=== PATIENT | female | born 1960 | race African-American/Black ===

== ENCOUNTER 2018-12-29 16:56 | Emergency (ER) | payer MEDICAID, MEDICARE ==
[~2018-12-29] VITALS: Ht 154.9 cm; Wt 77.1 kg
[2018-12-29] MEDS ORDERED: Ketorolac 30mg Inj IV ONE (17:15)
[2018-12-29] MEDS ORDERED: LORazepam Inj 2mg/ml 1ml IV ONE (17:15)
--- NOTE | 2018-12-29 17:28 | Emergency Room Report ---
History of Present Illness General Chief Complaint: Chest Pain Source: Patient Present Illness HPI Patient presents with neck pain. She woke up with this. When she went to [place] the pain was worse. She also started experiencing chest pain that was intermittent. Chest pain was nonexertional. He denies shortness of breath. There is no nausea or vomiting. He denies headache. There is no trauma to her neck. She never had this pain before. She did not take any medication today. She denies fevers, chills, sore throat. The pain is worse on the right side of her neck. The pain is rated 10/10, aching and burning. It radiates somewhat from her neck into her shoulders more on the right-hand side. 15 years ago she had angina that was treated with nitroglycerin. She has not had a cardiac work-up since that time. She has a very distant history of smoking but denies hypertension and diabetes. There is no family history of heart disease. The patient has neuropathy. She also has asthma denies any wheezing. The patient takes omeprazole for gastritis. Patient has adverse reactions when she takes the opiates. The patient complains of insomnia and anxiety. Patient denies dysuria or change in bowels. Allergies: Coded Allergies: AMOXICILLIN (Verified Allergy, Unknown, 12/29/18) CLAVULANIC ACID (Verified Allergy, Unknown, 12/29/18) CODEINE (Verified Allergy, Unknown, 12/29/18) DIPHENHYDRAMINE (Verified Allergy, Unknown, 12/29/18) HYDROCODONE (Verified Allergy, Unknown, 12/29/18) IODINE (Verified Allergy, Unknown, 12/29/18) PENICILLINS (Verified Allergy, Unknown, 12/29/18) SULFUR DIOXIDE (Verified Allergy, Unknown, 12/29/18) Uncoded Allergies: IV CONTRAST/DYE (Allergy, Unknown, 12/29/18) Patient History Past Medical History: see triage record Social History: Denies: smoking - teenager Social History Narrative With family member Reviewed Nursing Documentation: PMH: Agreed; PSxH: Agreed Nursing Documentation-PMH Hx Asthma: Yes Hx COPD: Yes Review of Systems All Other Systems: negative except mentioned in HPI Physical Exam Vital Signs Date Time Temp Pulse Resp B/P (MAP) Pulse Ox O2 Delivery O2 Flow Rate FiO2 12/29/18 17:05 99.9 86 18 134/59 (84) 98 Sp02 EP Interpretation: reviewed, normal General Appearance: well appearing, no apparent distress, GCS 15, non-toxic Head: normocephalic, atraumatic Eyes: bilateral eye normal inspection, bilateral eye PERRL, bilateral eye EOMI ENT: normal pharynx, moist mucus membranes Neck: supple, no bony tend, tender - Muscle mass is more on right than left Respiratory: chest non-tender, lungs clear, normal breath sounds Cardiovascular #1: regular rate, rhythm, no edema Cardiovascular #2: 2+ radial (R) Gastrointestinal: normal inspection, normal bowel sounds, non tender, no mass, non-distended Musculoskeletal: back normal, normal range of motion, digits/nails normal, gait /station normal Neurologic: alert, motor strength/tone normal, oriented x3, sensory intact, grossly normal, other - reported neuropathy legs Psychiatric: mood/affect normal Skin: no rash, warm/dry Medical Decision Making Diagnostic Impression: Primary Impression: Neck pain Additional Impressions: Chest pain Qualified Codes: R07.9 - Chest pain, unspecified Osteoarthritis Qualified Codes: M15.9 - Polyosteoarthritis, unspecified Insomnia Qualified Codes: G47.00 - Insomnia, unspecified ER Course Patient presents with neck pain and chest pain. Differential includes acute myocardial infarction, arthritis, muscle spasm, aneurysm, torticollis amongst others. Evaluation will be with EKG, chest x-ray, neck films and labs. The patient will be treated with Toradol and Ativan. Patient is placed on a potline monitor. Patient refuses narcotics or opiates. EKG sinus rhythm with a short ME interval otherwise normal EKG. labs unremarkable. Chest x-ray and neck films with degenerative arthritis. Still complaining about muscle spasm. Soma given. Improved and sleeping. Neck collar helping. Discussed findings with patient. Discussed the need for follow-up with her private physician. Adjusted physical therapy may help. Risk factors for cardiac disease and history against angina or cardiac cause. Patient stable for outpatient observation and treatment. At discharge patient requested Ativan for insomnia. Discussed benefits of Restoril and this was prescribed. Laboratory Tests Test 12/29/18 17:40 White Blood Count 8.6 K/UL (4.8-10.8) Red Blood Count 4.20 M/UL (4.20-5.40) Hemoglobin 11.9 G/DL (12.0-16.0) L Hematocrit 36.4 % (37.0-47.0) L Mean Corpuscular Volume 87 FL (80-99) Mean Corpuscular Hemoglobin 28.3 PG (27.0-31.0) Mean Corpuscular Hemoglobin Concent 32.7 G/DL (32.0-36.0) Red Cell Distribution Width 12.6 % (11.6-14.8) Platelet Count 480 K/UL (150-450) H Mean Platelet Volume 5.5 FL (6.5-10.1) L Neutrophils (%) (Auto) 77.7 % (45.0-75.0) H Lymphocytes (%) (Auto) 15.4 % (20.0-45.0) L Monocytes (%) (Auto) 5.8 % (1.0-10.0) Eosinophils (%) (Auto) 0.0 % (0.0-3.0) Basophils (%) (Auto) 1.1 % (0.0-2.0) Prothrombin Time 10.0 SEC (9.30-11.50) Prothrombin Time INR 0.9 (0.9-1.1) PTT 29 SEC (23-33) Sodium Level 141 MMOL/L (136-145) Potassium Level 3.7 MMOL/L (3.5-5.1) Chloride Level 104 MMOL/L (98-107) Carbon Dioxide Level 27 MMOL/L (21-32) Anion Gap 10 mmol/L (5-15) Blood Urea Nitrogen 8 mg/dL (7-18) Creatinine 0.8 MG/DL (0.55-1.30) Estimate Glomerular Filtration Rate > 60 mL/min (>60) Glucose Level 98 MG/DL (74-106) Calcium Level 9.1 MG/DL (8.5-10.1) Total Bilirubin 0.2 MG/DL (0.2-1.0) Aspartate Amino Transferase (AST) 22 U/L (15-37) Alanine Aminotransferase (ALT) 27 U/L (12-78) Alkaline Phosphatase 124 U/L (46-116) H Total Creatine Kinase 217 U/L (26-308) Troponin I 0.000 ng/mL (0.000-0.056) Pro-B-Type Natriuretic Peptide 109 pg/mL (0-125) Total Protein 7.4 G/DL (6.4-8.2) Albumin 3.7 G/DL (3.4-5.0) Globulin 3.7 g/dL Albumin/Globulin Ratio 1.0 (1.0-2.7) EKG Diagnostic Results Rate: normal Rhythm: NSR ST Segments: no acute changes Rhythm Strip Diag. Results EP Interpretation: yes Rhythm: NSR, no PVC's, no ectopy Chest X-Ray Diagnostic Results Chest X-Ray Diagnostic Results : Chest X-Ray Ordered: Yes # of Views/Limited/Complete: 1 View Indication: Chest Pain Interpretation: no consolidation, no effusion, no pneumothorax, other - Aorta and mediastinal sternum normal Impression: No acute disease Electronically Signed by: Electronically signed by Trip Cortés MD Other X-Ray Diagnostic Results Other X-Ray Diagnostic Results : X-Ray ordered: Cervical spine # of Views/Limited Vs Complete: 3 View Indication: Pain EP Interpretation: Yes Interpretation: no dislocation, no soft tissue swelling, no fractures, other - Degenerative disease Impression: Other Electronically Signed by: Electronically signed by Trip Cortés MD Last Vital Signs Date Time Temp Pulse Resp B/P (MAP) Pulse Ox O2 Delivery O2 Flow Rate FiO2 12/29/18 21:17 83 18 120/60 96 Room Air 12/29/18 20:22 98.6 Status: improved Disposition: HOME, SELF-CARE Condition: Improved Scripts Temazepam* (RESTORIL*) 7.5 Mg Capsule 7.5 MG ORAL BEDTIME, #6 CAP 0 Refills Prov: Trip Cortés MD 12/29/18 Methocarbamol* (ROBAXIN-500*) 500 Mg Tablet 500 MG ORAL TID PRN for For Pain, #12 TAB 0 Refills Prov: Trip Cortés MD 12/29/18 Ibuprofen* (MOTRIN*) 600 Mg Tablet 600 MG ORAL Q6H PRN for For Pain, #16 TAB 0 Refills Prov: Trip Cortés MD 12/29/18 Trip Cortés MD Dec 29, 2018 17:28
[2018-12-29 17:34] VITALS: BP 129/84
[2018-12-29 18:02] LABS: BASOPHILS % (AUTO) 1.1 % (0.0-2.0); HEMATOCRIT 36.4 % (37.0-47.0); HEMOGLOBIN 11.9 G/DL (12.0-16.0); LYMPHOCYTES % (AUTO) 15.4 % (20.0-45.0); MEAN CORPUSCULAR VOLUME 87 FL (80-99); MONOCYTES % (AUTO) 5.8 % (1.0-10.0); NEUTROPHILS % (AUTO) 77.7 % (45.0-75.0); PLATELET COUNT 480 K/UL (150-450); RED CELL DISTRIBUTION WIDTH 12.6 % (11.6-14.8); WHITE BLOOD COUNT 8.6 K/UL (4.8-10.8)
[2018-12-29 18:25] LABS: INR 0.9 (0.9-1.1)
[2018-12-29 18:44] LABS: ANION GAP 10 mmol/L (5-15); BLOOD UREA NITROGEN 8 mg/dL (7-18); CALCIUM 9.1 MG/DL (8.5-10.1); CARBON DIOXIDE 27 MMOL/L (21-32); CHLORIDE 104 MMOL/L (98-107); CREATININE 0.8 MG/DL (0.55-1.30); POTASSIUM 3.7 MMOL/L (3.5-5.1); SODIUM 141 MMOL/L (136-145)
[2018-12-29 18:54] LABS: ALANINE AMINOTRANSFERASE 27 U/L (12-78); ALBUMIN 3.7 G/DL (3.4-5.0); ALKALINE PHOSPHATASE 124 U/L (46-116); ASPARTATE AMINO TRANSFERASE 22 U/L (15-37); BILIRUBIN,TOTAL 0.2 MG/DL (0.2-1.0); CREATINE KINASE 217 U/L (26-308)
[2018-12-29 19:40] VITALS: BP 138/82
[2018-12-29] MEDS ORDERED: ROBAXIN-500MG ORAL (20:44)
[2018-12-29] MEDS ORDERED: IBUPROFEN600 MG ORAL (20:44)
[2018-12-29 21:17] VITALS: BP 120/60
[2018-12-29] MEDS ORDERED: RESTORIL7.5 MG ORAL (21:18)
[2018-12-30] MEDS ORDERED: OMEPRAZOLE20 M2 ORAL (03:12)
--- NOTE | 2018-12-30 10:24 | Diagnostic Imaging Report ---
Indication: Neck Pain Findings: 3 views of the cervical spine were obtained. Moderate degenerative changes of the cervical spine are demonstrated. This is characterized by vertebral endplate osteophyte formation and narrowing of intervertebral discs. The cervical spine is not seen below C6. There is no obvious acute fracture identified. Alignment is normal. The open-mouth odontoid view was not done. There is no soft tissue swelling. Impression: Moderate degenerative spondylosis. No obvious acute injury. Limited evaluation
--- NOTE | 2018-12-30 10:25 | Diagnostic Imaging Report ---
Indication: Chest pain Comparison: None A single view chest radiograph was obtained. Findings: No definite infiltrate or pulmonary vascular congestion identified. The heart is enlarged. The aorta is mildly enlarged consistent with atherosclerotic vascular disease. The bones are osteopenic. Impression: No acute disease
--- NOTE | 2018-12-30 19:24 | Cardiology Report ---
APPROVED REPORT EKG Measurement Heart [id number] NM [id number] Sinus rhythm with short NM Otherwise normal ECG
== END 2018-12-29 21:17 | disposition home or self-care (01) ==
LOC: EMR 17:25
DX: M54.2 Cervicalgia (principal); R07.9 Chest pain, unspecified; M15.9 Polyosteoarthritis, unspecified; G47.00 Insomnia, unspecified; G62.9 Polyneuropathy, unspecified; F41.9 Anxiety disorder, unspecified; Z79.899 Other long term (current) drug therapy; Z88.0 Allergy status to penicillin; Z88.6 Allergy status to analgesic agent; Z88.8 Allergy status to other drugs, medicaments and biological substances; Z88.2 Allergy status to sulfonamides; Z91.041 Radiographic dye allergy status; J44.9 Chronic obstructive pulmonary disease, unspecified
CPT/HCPCS: 36415; 71045; 72040; 80053; 82550; 83880; 84484; 85025; 85610; 85730; 93005; 96374; 96375; 99284; J1885

== ENCOUNTER 2019-01-19 15:05 | Emergency (ER) | payer MEDICARE ==
[~2019-01-19] VITALS: Ht 154.9 cm; Wt 80.7 kg
[~2019-01-19 15:05] MED LIST: IBUPROFEN600 MG ORAL; OMEPRAZOLE20 M2 ORAL; RESTORIL7.5 MG ORAL; ROBAXIN-500MG ORAL
[2019-01-19 16:17] VITALS: BP 137/72
--- NOTE | 2019-01-19 16:56 | Diagnostic Imaging Report ---
Indications: Pain, trauma, status post fall Technique: Spiral acquisitions obtained through the brain. Angled axial and coronal 5 x 5 mm slices were reconstructed. Total dose length product 1454 mGycm. CTDI vol(s) 60 mGy. Dose reduction achieved using automated exposure control Comparison: None. Findings: No acute intracranial hemorrhage or edema. No mass effect nor midline shift. Normal forrest-white differentiation. Normal size ventricles and extra-axial CSF spaces. Visualized orbits and sinuses are unremarkable. The calvarium is intact. The mastoids are clear. Impression: Negative This agrees with the preliminary interpretation provided overnight by [facility] telerad[facility] service. The CT scanner at [facility] is accredited by the [employer] and the scans are performed using protocols designed to limit radiation exposure to as low as reasonably achievable to attain images of sufficient resolution adequate for diagnostic evaluation.
--- NOTE | 2019-01-19 17:02 | Diagnostic Imaging Report ---
Clinical Indication: Trauma, chest pain, status post fall Technique: Spiral acquisitions obtained through the chest. No IV contrast utilized, reason not stated. Multiplanar reconstructions generated. Total dose length product 831 mGycm. CTDIvol(s) 7 mGy. Dose reduction achieved using automated exposure control Comparison: none Findings: No acute fractures. There are fairly extensive degenerative proliferative changes of the thoracic spine. No evidence of retrosternal hematoma. No evidence of significant soft tissue contusion. There is a 3 mm somewhat indistinct nodule in the lingula, image 42 and 43 of series 3. There is a similar opacity in the inferior right upper lobe, image 43 of series 3. No evidence of pneumothorax or parenchymal contusion. No infiltrates, effusions, masses or congestion demonstrated. The included thyroid is unremarkable. The heart size is normal. No pericardial effusion. No mediastinal or hilar mass or adenopathy. There is a small sliding-type hiatal hernia. No axillary or chest wall mass or adenopathy. The included upper abdominal viscera are unremarkable. Impression: No evidence of acute bony or soft tissue trauma Bilateral nodules as described. No further follow-up necessary if there is no significant smoking history or risk factors for lung carcinoma. Recommend 6-12 months for follow-up CT if there are significant risk factors. This agrees with the preliminary interpretation provided overnight by [facility] service. The CT scanner at [facility] is accredited by the [employer] and the scans are performed using protocols designed to limit radiation exposure to as low as reasonably achievable to attain images of sufficient resolution adequate for diagnostic evaluation.
--- NOTE | 2019-01-19 17:07 | Emergency Room Report ---
History of Present Illness General Chief Complaint: Multiple Trauma/Fall Source: Patient Present Illness HPI 58-year-old female with history of COPD, and recent arthroscopic left knee surgery, ambulating to the ER with a cane, here complaining of pain after multiple fall and trauma. Patient reports that she first fell after getting up while sitting on the toilet, landed on the left side of her head and neck as well as upper back and left knee where she had arthroscopic surgery done a week ago. She did not lose any consciousness and denies dizziness, headache, nausea vomiting at this time. Patient also fell this morning landing on her head, denies loss of consciousness. Patient denies any dizziness prior to her falls. Patient has had with the first post op visit with his knee surgeon and reports that she does not take any tramadol or [place] that was prescribed. Patient has been taking some Robaxin which was leftover from her last injury and reports some improvement. Denies chest pain, shortness of breath, palpitation, abdominal pain, no other associate symptoms. Denies saddle paresthesia, urinary or bowel incontinence. Rating her pain 7 out of 10 upon palpation, describing it as aching Allergies: Coded Allergies: AMOXICILLIN (Verified Allergy, Unknown, 12/29/18) CLAVULANIC ACID (Verified Allergy, Unknown, 12/29/18) CODEINE (Verified Allergy, Unknown, 12/29/18) DIPHENHYDRAMINE (Verified Allergy, Unknown, 12/29/18) HYDROCODONE (Verified Allergy, Unknown, 12/29/18) IODINE (Verified Allergy, Unknown, 12/29/18) PENICILLINS (Verified Allergy, Unknown, 12/29/18) SULFUR DIOXIDE (Verified Allergy, Unknown, 12/29/18) Uncoded Allergies: IV CONTRAST/DYE (Allergy, Unknown, 12/29/18) Patient History Past Medical History: see triage record Past Surgical History: other - Arthroscopic knee surgery Pertinent Family History: none Social History: Reports: smoking Now: No Immunizations: UTD Reviewed Nursing Documentation: PMH: Agreed; PSxH: Agreed Nursing Documentation-PMH Past Medical History: No History, Except For Hx Asthma: Yes Hx COPD: Yes Review of Systems All Other Systems: negative except mentioned in HPI Physical Exam Vital Signs Date Time Temp Pulse Resp B/P (MAP) Pulse Ox O2 Delivery O2 Flow Rate FiO2 01/19/19 15:15 98.4 87 20 137/72 (93) 97 Room Air Sp02 EP Interpretation: reviewed, normal General Appearance: no apparent distress, alert, GCS 15, non-toxic Head: normocephalic, atraumatic Eyes: bilateral eye normal inspection, bilateral eye PERRL ENT: hearing grossly normal, normal pharynx, no angioedema, normal voice Neck: full range of motion, supple, thyroid normal, no meningismus, no bony tend, supple/symm/no masses Respiratory: chest non-tender, lungs clear, normal breath sounds, no rhonchi, no respiratory distress, no retraction, no wheezing, speaking full sentences Cardiovascular #1: regular rate, rhythm, no edema, no murmur Cardiovascular #2: 2+ carotid (R), 2+ carotid (L), 2+ radial (R), 2+ radial (L) , 2+ dorsalis pedis (R), 2+ dorsalis pedis (L) Gastrointestinal: normal bowel sounds, non tender, soft, non-distended, no guarding, no rebound Rectal: deferred Genitourinary: no CVA tenderness Musculoskeletal: back normal, digits/nails normal, no calf tenderness, pelvis stable, non-tender Neurologic: alert, motor strength/tone normal, oriented x3, sensory intact, responsive, speech normal Psychiatric: judgement/insight normal, memory normal, mood/affect normal, no suicidal/homicidal ideation Skin: no rash, other - No ecchymosis noted Lymphatic: no adenopathy Medical Decision Making PA Attestation Diagnosis and treatment plans were reviewed and discussed with my supervising physician Dr. De Leon Diagnostic Impression: Primary Impression: Head contusion Additional Impressions: Back contusion Knee contusion Pulmonary nodule Osteopenia ER Course 58-year-old female with history of COPD, and recent arthroscopic left knee surgery, ambulating to the ER with a cane, here complaining of pain after multiple fall and trauma. Patient reports that she first fell after getting up while sitting on the toilet, landed on the left side of her head and neck as well as upper back and left knee where she had arthroscopic surgery done a week ago. She did not lose any consciousness and denies dizziness, headache, nausea vomiting at this time. Patient also fell this morning landing on her head, denies loss of consciousness. Patient denies any dizziness prior to her falls. Patient has had with the first post op visit with his knee surgeon and reports that she does not take any tramadol or [place] that was prescribed. Patient has been taking some Robaxin which was leftover from her last injury and reports some improvement. Denies chest pain, shortness of breath, palpitation, abdominal pain, no other associate symptoms. Denies saddle paresthesia, urinary or bowel incontinence. Rating her pain 7 out of 10 upon palpation, describing it as aching Ddx considered but are not limited to: cerebral hematoma, concussion, skull fracture, head contusion, back contusion versus rib fracture versus pneumothorax , knee contusion versus fracture Vital signs: are WNL, pt. is afebrile H&PE are most consistent with: Head contusion, back contusion, knee contusion, arthritis and osteopenia of neck which patient is already aware of, incidental finding of a pulmonary nodule ORDERS: head CT no contrast, chest CT noncontrast, left knee x-ray, C-spine x- ray, Tylenol, Robaxin, lidocaine patch ED INTERVENTIONS: Toradol DISCHARGE: At this time pt. is stable for d/c to home. Will provide printed patient care instructions, and any necessary prescriptions. Care plan and follow up instructions have been discussed with the patient prior to discharge. Patient to follow-up with primary care provider and her surgeon to find out recent multiple falls. Also to follow-up with his chief medical officer regarding the incidental finding of a pulmonary nodule. If worsening symptoms return to emergency room Other X-Ray Diagnostic Results Other X-Ray Diagnostic Results #1: X-Ray ordered: Left knee # of Views/Limited Vs Complete: 3 View Indication: Pain EP Interpretation: Yes PA Xray: Interpretation reviewed, by supervising MD, and agrees with findings. Interpretation: no dislocation, no soft tissue swelling, no fractures Impression: No acute disease Electronically Signed by: Elizabeth Ibarra PA-C Other X-Ray Diagnostic Results #2: X-Ray ordered: C-spine # of Views/Limited Vs Complete: 3 View Indication: Pain EP Interpretation: Yes PA Xray: Interpretation reviewed, by supervising MD, and agrees with findings. Interpretation: no dislocation, no soft tissue swelling, no fractures Impression: No acute disease Electronically Signed by: Elizabeth Ibarra PA-C PA Scribe Text FILM C SPINE: Comparison is made to cervical spine radiographs on 12/29/2018. No new vertebral body height loss or subluxation. Stable possible compression deformity of the C5 vertebral body. Osteopenia. Degenerative changes of the spine. CT/MRI/US Diagnostic Results CT/MRI/US Diagnostic Results #1: Imaging Test Ordered: Head CT no contrast Impression No intracranial hemorrhage, no skull fracture CT/MRI/US Diagnostic Results #2: Imaging Test Ordered: CT chest noncontrast Impression CT CHEST Without Contrast: No acute traumatic abnormality in the chest. No acute pulmonary parenchymal abnormality identified. Nonspecific 5 mm nodule in the ligula and inferior right upper lobe. Small splenule. Last Vital Signs Date Time Temp Pulse Resp B/P (MAP) Pulse Ox O2 Delivery O2 Flow Rate FiO2 01/19/19 16:17 98.4 87 20 137/72 97 Room Air Disposition: HOME, SELF-CARE Condition: Stable Scripts Acetaminophen* (TYLENOL EXTRA STRENGTH*) 500 Mg Tablet 500 MG ORAL Q6H PRN for Mild Pain/Temp > 100.5, #30 TAB 0 Refills Prov: Elizabeth Virk 01/19/19 Lidocaine Patch* (Lidoderm Patch*) 1 Each Adh..patch 1 PATCH TOPIC DAILY, #7 PATCH 0 Refills Patch(es) may remain in place for up to 12 hours in any 24-hour period. Prov: Elizabeth Virk 01/19/19 Methocarbamol* (ROBAXIN-500*) 500 Mg Tablet 500 MG ORAL TID PRN for For Pain, #15 TAB 0 Refills Prov: Elizabeth Virk 01/19/19 Patient Instructions: Chest Contusion, [id number], Facial or Scalp Contusion , [id number], Pulmonary Nodule, [place] Additional Instructions: Follow-up with your primary care provider, if worsening symptoms return to the emergency room. The results of your multiple falls may be due to anesthesia that you recently went under. You need to follow-up with your surgeon. Elizabeth Virk Jan 19, 2019 17:07
[2019-01-19] MEDS ORDERED: ROBAXIN-500MG ORAL (17:08)
[2019-01-19] MEDS ORDERED: LIDODERM700 M1 TOPIC (17:08)
[2019-01-19] MEDS ORDERED: TYLENOL EXTRA500 MG ORAL (17:08)
--- NOTE | 2019-01-19 17:15 | Diagnostic Imaging Report ---
Indication: Pain, trauma, status post fall Technique: 3 views of the cervical spine Comparison: 12/29/2018 Findings: No prevertebral soft tissue swelling. No acute fractures. No dislocations. Bony alignment is normal. There is degenerative remodeling of the C4 and C5 vertebral bodies resulting in some loss of height, and to a lesser extent C6. The remaining vertebral body heights are preserved. Findings are unchanged Impression: Degenerative changes, as described No definite acute bony trauma This agrees with the preliminary interpretation provided overnight by [facility].
[2019-01-19] MEDS ORDERED: Ketorolac 30mg Inj IM ONE (17:30)
[2019-01-19 17:50] VITALS: BP 137/72
--- NOTE | 2019-01-19 17:50 | NUR ---
ER DISCHARGE NOTE: Patient is cleared to be discharged per ERMD, pt is aox4, on room air, with stable vital signs. pt was given dc and prescription instructions, pt was able to verbalize understanding. pt is able to ambulate with steady gait. pt took all belongings.
--- NOTE | 2019-01-20 09:15 | Diagnostic Imaging Report ---
Indication: Pain, trauma, one day status post fall Technique: 3 views of the left knee Comparison: None Findings: There are degenerative changes of the patellofemoral joint and medial joint compartment. No acute fractures. No dislocations. Bones are osteoporotic. Impression: Degenerative changes as described No acute bony trauma
== END 2019-01-19 18:00 | disposition home or self-care (01) ==
LOC: EMR 17:15
DX: S00.93XA Contusion of unspecified part of head, initial encounter (principal); S20.229A Contusion of unspecified back wall of thorax, initial encounter; S80.02XA Contusion of left knee, initial encounter; J44.9 Chronic obstructive pulmonary disease, unspecified; Z87.891 Personal history of nicotine dependence; Z88.0 Allergy status to penicillin; Z88.2 Allergy status to sulfonamides; Z88.6 Allergy status to analgesic agent; R91.1 Solitary pulmonary nodule; M85.80 Other specified disorders of bone density and structure, unspecified site; W19.XXXA Unspecified fall, initial encounter; Y92.9 Unspecified place or not applicable
CPT/HCPCS: 70450; 71250; 72040; 73562; 96372; 99284; J1885